=== PATIENT | female | born 1955 | race Caucasian/White ===

== ENCOUNTER 2016-11-15 19:50 | Emergency (ER) | payer OTHER, BC ==
--- NOTE | 2016-11-15 20:00 | PDOC ---
History of Present Illness - General History Source: Patient Exam Limitations: No Limitations - History of Present Illness Initial Comments: 11/15/16 20:07 The patient is a 61 year old female with no significant past medical history who presents to the ED with left foot pain since today. She states that she was walking down the stairs as she rolled her left foot to the side. She reports top of the left foot pain. She denies any ankle pain or swelling. PCP - Dr. Mcmillan PAST MEDICAL HISTORY: no significant history PAST SURGICAL HISTORY: no significant history FAMILY HISTORY: no pertinent history SOCIAL HISTORY: Pt lives with family and is employed. MEDICATIONS: reviewed ALLERGIES: As per nursing notes General: No fevers or chills, no weakness, no weight loss HEENT: No change in vision. No sore throat, No ear pain CardioVascular: No chest pain or shortness of breath Respiratory:No cough, or wheezing. Gastrointestinal: no nausea, vomiting, diarrhea or constipation, No rectal bleeding Genitourinary: No dysuria, hematuria, or frequency Musculoskeletal: (+)left foot pain. Neurologic: No headache, vertigo, dizziness or loss of consciousness Psychiatric: nor depression Skin: No rashes or easy bruising Endocrine: no increased thirst or abnormal weight change Allergic: no skin or latex allergy All other systems reviewed and normal GENERAL: The patient is awake, alert, and fully oriented, in no acute distress. HEAD: Normal with no signs of trauma. EYES: Pupils equal, round and reactive to light, extraocular movements intact, sclera anicteric, conjunctiva clear. EXTREMITIES: (+)tenderness to the left anterior foot. No 5th metatarsal tenderness, (+)Left foot tenderness, swelling and ecchymosis of the dorsum of left foot medially. No tenderness on palpation of the left ankle or base of 5th metatarsal. (+)Neurovascular distals intact NEUROLOGICAL: Normal speech, normal gait. PSYCH: Normal mood, normal affect. SKIN: Warm, Dry, normal turgor, no rashes or lesions noted. <Susan Black - Last Filed: 11/15/16 20:06> - General History Source: Patient Exam Limitations: No Limitations - History of Present Illness Initial Comments: 11/15/16 20:55 A portion of this note was documented by scribe services under my direction. I have reviewed the details of the note, within reason, and agree with the documentation. The case summary and management plan written by me. X-ray question of a fracture base of second metatarsal X-ray discussed with radiologist and reviewed by me Procedure note Posterior OCL splint applied to left foot and lower leg Neurovascular exam post splint application intact Assessment and plan: This is a 61-year-old female who tripped going down stairs resulting in a probable fracture to the base of her second metatarsal. Patient was put in an OCL splint and refused crutches. The patient was referred to Dr. Lee's group for orthopedic follow-up. Patient given ibuprofen here in the emergency room. Patient has oxycodone at home that she can take. <Orquidea Bentley I - Last Filed: 11/15/16 21:01> - General Chief Complaint: Pain Stated Complaint: LEFT FOOT PAIN Time Seen by Provider: 11/15/16 19:59 Past History <Susan Black - Last Filed: 11/15/16 20:06> <Orquidea Bentley I - Last Filed: 11/15/16 21:01> - Past Medical History Allergies/Adverse Reactions: Allergies Allergy/AdvReac Type Severity Reaction Status Date / Time No Known Allergies Allergy Verified 11/15/16 19:55 Home Medications: Ambulatory Orders Levothyroxine 11/15/16 Prempro 0.45-1.5 mg Tablet 11/15/16 *Physical Exam - Vital Signs Last Vital Signs Temp Pulse Resp BP Pulse Ox 98.3 F 77 15 124/65 100 11/15/16 19:54 11/15/16 19:54 11/15/16 19:54 11/15/16 19:54 11/15/16 19:54 <Susan Black - Last Filed: 11/15/16 20:06> *DC/Admit/Observation/Transfer - Attestations Scribe Attestion: 11/15/16 20:08 Documentation prepared by OVIDIO Bright, acting as medical voucher clerk for Orquidea Bentley MD. <Susan Black - Last Filed: 11/15/16 20:06> - Discharge Dispostion Admit: No <Orquidea Bentley I - Last Filed: 11/15/16 21:01> Diagnosis at time of Disposition: Foot fracture, left Qualifiers: Encounter type: initial encounter Fracture type: closed Qualified Code(s): S92.902A - Unspecified fracture of left foot, initial encounter for closed fracture - Discharge Dispostion Disposition: HOME Condition at time of disposition: Good - Referrals Referrals: Emily Ellis [Primary Care Provider] - - Patient Instructions Additional Instructions: Limit weight bearing as much as possible until you see the orthopedist. Use he cane for walking. For the pain you can take ibuprofen 3 tablets 3 times a day. If he needs something stronger you can take oxycodone 1-2 tablets as often as every 4-6 hours as needed. The oxycodone will make you drowsy so do not drive or operate heavy equipment or do anything that requires your concentration for at least 4 hours after taking the oxycodone. Follow-up with Dr. Lee in the morning his phone number is [phone]. Call him in the morning as soon as his office opens and he will be able to get U an appointment tomorrow. Return to the emergency department immediately with ANY new, persistent or worsening symptoms. Continue any medications as previously prescribed by your physician. You should follow up with your primary doctor as soon as possible regarding today's emergency department visit. . Please make sure your doctor reviews the results of your emergency evaluation. Thank you for coming to the Emergency Department today for your care. It was a pleasure to see you today. Please note that your evaluation is INCOMPLETE until you follow-up with your doctor. .
[2016-11-15 20:02] VITALS: BP 124/65; PULSE 77; TEMP 98.3; BMI 23.1
[2016-11-15] MEDS ORDERED: IBUPROFEN 600 MG TABLET (FP) PO ONE ×2 (20:04→20:05)
== END 2016-11-15 21:10 | disposition home or self-care (01) ==
LOC: FER 19:50
PROC: 2W3TX1Z Immobilization of Left Foot using Splint (ICD-10-PCS; principal; 2016-11-15)
DX: S92.325A Nondisplaced fracture of second metatarsal bone, left foot, initial encounter for closed fracture (principal); W10.9XXA Fall (on) (from) unspecified stairs and steps, initial encounter; Y93.89 Activity, other specified; Y92.9 Unspecified place or not applicable
CPT/HCPCS: 73630-TC-LT; 99283-25